=== PATIENT | female | born 1970 | race Caucasian/White ===

== ENCOUNTER → 2020-09-28 | Outpatient (CLI) | payer OTHER ==
[~2020-09-28] MED LIST: FLEXERIL5 MG PO; MOTRIN800 MG PO; NO HOME MEDICATIONS; PHENERGAN W/CO120 ML PO; VICODIN 5/5001 UDTAB PO; ZITHROMAX Z PA250 MG PO
== END ==
LOC: MC.RAD 09:00
DX: Z12.31 Encounter for screening mammogram for malignant neoplasm of breast (principal)